=== PATIENT | female | born 1985 | race African-American/Black ===

== ENCOUNTER 2020-06-23 02:22 | Emergency (ER) | payer OTHER, SELFPAY ==
[~2020-06-23] VITALS: Ht 160 cm; Wt 77.1 kg
--- NOTE | 2020-06-23 02:35 | NUR ---
BIB EMS C/O "WHOLE BODY NUMBNESS, CHRONIC GEN BODY PAIN, CHRONIC HEADACHE. I FEEL LIKE MY WHOLE BODY IS BURNING" PT WS PLACED ON MONITOR ,
[2020-06-23] MEDS ORDERED: IBUPROFEN 400 MG TABLET PO ONE (03:00)
[2020-06-23] MEDS ORDERED: HYDROCODONE/APAP 5/325MG 1 EACH TABLET PO ONE (03:00)
--- NOTE | 2020-06-23 03:05 | NUR ---
PT REFUSED COVID SWAB. AWARE
[2020-06-23 03:08] LABS: BASOPHILS % (AUTO) 0.6 % (0.0-2.0); EOSINOPHILS % (AUTO) 3.7 % (0.0-6.0); HEMATOCRIT 37 % (33-45); HEMOGLOBIN 11.6 g/dL (11.5-14.8); LYMPHOCYTES # (AUTO) 1.3 /CMM (0.8-4.8); LYMPHOCYTES % (AUTO) 33.1 % (20.0-44.0); MEAN CORPUSCULAR HGB CONC 32 g/dl (31.0-36.0); MEAN CORPUSCULAR VOLUME 87 fL (82-100); MONOCYTES # (AUTO) 0.4 /CMM (0.1-1.30); MONOCYTES % (AUTO) 9.4 % (2.0-12.0); NEUTROPHILS # (AUTO) 2.1 /CMM (1.8-8.9); NEUTROPHILS % (AUTO) 53.2 % (43.0-81.0); PLATELET COUNT (AUTO) 276 /CMM (150-450); WHITE BLOOD COUNT (AUTO) 3.9 K/uL (4.3-11.0)
[2020-06-23] MEDS ORDERED: IBUPROFEN 400 MG TABLET ONE (03:16)
[2020-06-23] MEDS ORDERED: HYDROCODONE/APAP 5/325MG 1 EACH TABLET ONE (03:16)
[2020-06-23 03:25] LABS: ALBUMIN 3.3 g/dL (3.4-5.0); BILIRUBIN,DIRECT 0.1 mg/dL (0.0-0.2); BILIRUBIN,TOTAL 0.2 mg/dL (0.2-1.0); CALCIUM, SERUM 8.9 mg/dL (8.5-10.1); CREATININE 0.6 mg/dL (0.6-1.3); POTASSIUM 3.9 mmol/L (3.5-5.1); TOTAL PROTEIN, SERUM 6.7 g/dL (6.4-8.2)
[2020-06-23 03:30] LABS: THYROID STIMULATING HORMONE 2.006 uIU/mL (0.358-3.74)
--- NOTE | 2020-06-23 04:03 | NUR ---
Patient is resting comfortably in bed with eyes closed. Easily aroused. VSS
--- NOTE | 2020-06-23 05:59 | NUR ---
pt is medically stable for d/c. Patient discharged to home in stable condition. Rx and Written and verbal after care instructions given. Patient verbalizes understanding of instruction. pt denied being homeless and ambulating with steady gaits
[2020-06-23 06:06] VITALS: BP 106/54
== END 2020-06-23 06:06 | disposition home or self-care (01) ==
LOC: ER 02:23
DX: F45.0 Somatization disorder (principal)
CPT/HCPCS: 36415; 80048-TC; 80076-TC; 83690-TC; 84443-TC; 84702-TC; 85025-TC; 85652-TC; 85730-TC

== ENCOUNTER 2020-06-23 12:50 | Emergency (ER) | payer SELFPAY ==
[~2020-06-23] VITALS: Ht 160 cm; Wt 77.1 kg
--- NOTE | 2020-06-23 13:00 | NUR ---
BIBS TO ER BED 7. AAOX4. NOT IN RESP DISTRESS. AMBULATORY. CAME IN FOR HEADACHE AND BODY ACHE FOR THE PAST 2 MONTHS. NO NEURO DEFICIT NOTED. PT STATES THAT SHE IS TAKING IBUPROPHEN BUT NOT EFFECTIVE. PT IS ASKING IF SHE CAN HAVE A STRONGER PAIN MEDS. AWAITING MD FOR EVAL.
[2020-06-23 13:42] VITALS: BP 126/70
--- NOTE | 2020-06-23 14:20 | NUR ---
PT IS NOT IN THE ROOM WHEN THE MD WENT TO HER ROOM. PT IS NOT TO BE FOUND IN THE ER. PT ELOPED BEFORE MD GETS TO SEE HER.
--- NOTE | 2020-06-23 14:23 | NUR ---
Joanna monreal in [facility] - 06/23/20 at 1423 by BEBO Patient discharged to home in stable condition. Written and verbal after care instructions given. Patient verbalizes understanding of instruction. Pt ambulatory with a steady gait
== END 2020-06-23 14:26 | disposition left against medical advice (07) ==
LOC: ER 12:50
DX: Z53.21 Procedure and treatment not carried out due to patient leaving prior to being seen by health care provider (principal); M79.10 Myalgia, unspecified site

== ENCOUNTER 2020-06-28 17:07 | Emergency (ER) | payer SELFPAY ==
[~2020-06-28] VITALS: Ht 160 cm; Wt 77.1 kg
[2020-06-28 17:38] VITALS: BP 135/84
--- NOTE | 2020-06-28 17:48 | NUR ---
OZZIE CARBAJAL AT BEDSIDE FOR EVAL.
--- NOTE | 2020-06-28 18:00 | NUR ---
Patient given written and verbal discharge instructions. Patient verbalizes understanding of instructions. Patient is ambulatory with steady gait. Refuses offer of penitentiary placement. Patient given list of available shelters in surrounding area.
== END 2020-06-28 18:04 | disposition home or self-care (01) ==
LOC: ER 17:13
DX: F45.9 Somatoform disorder, unspecified (principal)